=== PATIENT | male | born 1975 | race African-American/Black ===

== ENCOUNTER → 2017-12-08 12:55 | Outpatient (CLI) | payer BC | END | disposition home or self-care (01) | LOC: D.MRI 12:55 | DX: M25.561 Pain in right knee (principal) ==

== ENCOUNTER 2018-04-02 08:22 | Day surgery (SDC) | payer BC ==
[2018-04-01 11:18] LABS: HEMATOCRIT 43.8 % (42.0-54.0); HEMOGLOBIN 15.7 g/dL (13.5-17.5); MCHC 35.8 g/dL (31.0-37.0); MCV 89.2 fL (80.0-100.0); MEAN PLATELET VOLUME 9.6 fL (7.4-10.4); RBC 4.91 10x6/uL (4.20-6.10); RDW 12.6 % (11.5-14.5); WBC 5.1 10x3/uL (4.8-10.8)
[~2018-04-02] VITALS: Ht 172.7 cm; Wt 87.1 kg
--- NOTE | ~2018-04-02 | OP ---
PATIENT NAME: SAJI GALEANOWAYNE MEDICAL RECORD: [id number] :79 LOCATION:[facility] ADMISSION DATE: SURGEON: SAJI REYNOSO DO DATE OF OPERATION: 04/02/2018 PROCEDURE PERFORMED: Left knee arthroscopy with partial lateral meniscectomy. PREOPERATIVE DIAGNOSES: Left knee pain, possible plica and loose body seen on MRI. POSTOPERATIVE DIAGNOSIS: Loose body in the left knee and lateral meniscal tear. INDICATIONS: Mr. Galeano is a 42-year-old male, who has had catching, popping, and locking of the knee for quite some time. He was tired of dealing with it. He even tried physical therapy. He had an MRI, which showed chondromalacia of the patella and a loose body floating around in the knee. 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 The patient had tried all manner of nonoperative treatment and is tired with dealing the pain and therefore elected to have a scope. He was informed of the risks and benefits of the procedure including infection, bleeding, damage to nerve or vessels, need for further surgery, and increased pain. He was okay with those risks and consented to the procedure. SURGEON: Saji Reynoso DO DESCRIPTION OF PROCEDURE: The patient taken to the operating suite and laid in supine position. The left lower extremity was prepped and draped in sterile fashion. Time-out was performed. Everybody was in agreement with correct site, side, patient and procedure. The patient received 2 grams of Ancef preoperatively. Once the time-out was performed, the knee was flexed down. The medial and lateral proposed portal sites were injected with 0.5% Marcaine with epinephrine and 4 mL in each site and then the 11 blade scalpel was used to establish the lateral portal. Scope was placed in the knee. Inspection of the knee began. In the suprapatellar pouch, no loose bodies were seen there. There was no plica seen over the medial condyle, and there was no real chondromalacia of the patella either. The lateral gutter was inspected, no loose bodies there. Medial gutter was same, no loose bodies there. The knee was then flexed down. There was some soft tissue just superior to the medial meniscus. This was debrided once the medial portal was established with an 18-gauge spinal needle and 11-blade scalpel and then a probe was placed into the knee. The medial meniscus was probed and no tears were seen. The ACL was probed and nothing was seen wrong with that. It was taut and in good position. The knee was then figured forward and a loose body was seen in the lateral joint line. This was noted and then the posterior horn of the lateral meniscus, the intrasubstance tear in the inferior part, it was subluxed into the joint and was likely the cause of his pain. This was chewed out with the shaver back to a stable position of the lateral meniscus, and the lateral meniscus was probed and no further tears were seen and the loose body was also removed. The knee was then further inspected. No other loose bodies were seen. Then, the water was turned off and the suction was turned on. Excess fluid was removed out of the knee. Portal sites were closed with 4-0 Monocryl in inverted interrupted fashion. Steri-Strips, Adaptic, 4 x 4's, ABD, Webril, and Esvin wrap were then placed on the knee. ALESSIO stocking was placed up to the knee. The patient was awakened and taken to recovery in stable condition. OPERATIVE REPORT [id number] SAJI GALEANO I BLOOD LOSS: Minimal. COMPLICATIONS: None. TRANSINT:[id number] Voice Confirmation ID: [id number] DOCUMENT ID: [id number] SAJI REYNOSO DO at 1428 CC: [id number] DICTATION DATE: 04/02/18 1251 PHARMACY GENERAL MANAGER: 04/02/18 1358 [facility] [address] [place] [address]
[~2018-04-02 08:22] MED LIST: LISINOPRIL10 MG PO; NORVASC10 MG PO; SINGULAIR10 MG PO
[2018-04-02 09:45] VITALS: BP 126/72; Ht 172.7 cm; Wt 87.1 kg
[2018-04-02] MEDS ORDERED: OXYCODONE-APAP1 T10 PO (12:46)
== END 2018-04-02 13:38 | disposition home or self-care (01) ==
LOC: D.OPS 08:22 → D.PAN 08:30 → D.OPS 10:00 → D.PAN 11:00 → D.OPS 13:38
PROVIDERS: Anesthesiology
DX: M23.42 Loose body in knee, left knee (principal); S83.242A Other tear of medial meniscus, current injury, left knee, initial encounter; Z01.812 Encounter for preprocedural laboratory examination